=== PATIENT | female | born 1995 | race Caucasian/White ===

== ENCOUNTER 2025-02-16 14:59 | Outpatient (REF) | payer OTHER, SELFPAY ==
--- OUTSIDE RECORDS SUMMARY | 2025-02-16 15:03 | XMS_ITS | Encounter Summary ---
Author Organization [facility] Address [address] [place] [address] Care Team Providers Care Ginger Farmer Name Role Phone Unavailable Primary Care Provider Unavailabl e Encounter Details Date Type Department Care Team (Late st Contact Info) Description 02/16/2025 Bamboo flowsheet [facility] [address] [place] [address] Bean Ortiz, DO [address] [place], [facility] Social History Tobacco Use Types Packs/Day Years Used Date Smoking Tobacco: Never Smokeless Tobacco: Never Alcohol Use Standard Drinks/Week Comments Never 0 (1 standard drink = 0.6 oz pur e alcohol) Comments No Sex and Gender Information Value Date Recorded Sex Assigned at Not on file Legal Sex Female 11:47 PM EDT Gender Identity Not on file Sexual Orientation Not on file documented as of this encounter Plan of Treatment Upcoming Encounters Date Type Department Care Team (Late st Contact Info) Description 08/07/2025 9:10 AM EST Office Visit [facility] [address] [place] [address] Teresa Gao, CRIMINAL JUSTICE SOCIAL WORKER-SHINGLE SAWYER [address] [place] [address] 02/22/2026 11:00 AM EDT Office Visit [facility] [address] [place] [address] Bean Ortiz, DO [address] [place], [facility] documented as of this encounter Visit Diagnoses Not on filedocumented in this encounter
--- OUTSIDE RECORDS SUMMARY | 2025-02-16 15:03 | XMS_ITS | Encounter Summary ---
Author Organization [facility] Address [address] [place] [address] Care Team Providers Care Research And Development Tester Name Role Phone Unavailable Primary Care Provider Unavailabl e Encounter Details Date Type Department Care Team (Latest Contact Info) Description 02/16/2025 Travel Social History Tobacco Use Types Packs/Day Years [...] Office Visit [facility] [address] [facility] [address] [place] [phone] Teresa Gao, HOUSING MANAGER-REAL ESTATE DEVELOPMENT MANAGER [address] [facility] [address] [place] [address] 02/22/2026 11:00 AM EDT Office Visit [facility] [address] [place] [id number] Bean Ortiz DO [address] [place] [address] documented as of this encounter Visit Diagnoses Not on filedocumented in this encounter
--- OUTSIDE RECORDS SUMMARY | 2025-02-16 15:03 | XMS_ITS | Clinical Summary ---
Author Organization [facility] Address [address] [facility] [place] [address] Care Team Providers Care Vegetable Ii Farmworker Name Role Phone Unavailable Primary Care Provider Unavailabl e Allergies No known active allergies Medications No known medications Active Problems No known active problems Encounters Date Type Department Care Team Description 02/16/2025 10:00 AM EDT Office Visit [facility] [address] [place] [address] Bean Ortiz, Well woman exam with routine gynecological exam; Hormone imbalance 02/16/2025 Telephone [facility] OB [facility] [place] [place] [address] Camilla Bonilla LPN 02/16/2025 Bamboo flowsheet [facility] [place] [address] [place] [address] Bean Ortiz DO 02/16/2025 Travel from Last 3 Months Family History Medical History Relation Name Comments Heart disease Maternal Grandfather Heart disease Paternal Grandfather Cancer Paternal Grandmother Melanoma Neg Hx Relation Name Status Comments Daughter 1 Maternal Grandfather Paternal Grandfather Paternal Grandmother Sister 1 Son 1 Social History Tobacco Use Types Packs/Day Years Used Date Smoking Tobacco: Never Smokeless Tobacco: Never Tobacco Cessation:Counseling Given: Not Answered Alcohol Use Standard Drinks/Week Comments Never 0 (1 standard drink = 0.6 oz pur e alcohol) Comments No Sex and Gender Information Value Date Recorded Sex Assigned at Not on file Legal Sex Female 11:47 PM EDT Gender Identity Not on file Sexual Orientation Not on file Last Filed Vital Signs Vital Sign Reading Time Taken Comments Blood Pressure 118/72 02/16/2025 10:17 AM EDT Pulse - - Temperature - - Respiratory Rate - - Oxygen Saturation - - Inhaled Oxygen Concentration - - Weight 73.9 kg (163 lb) 02/16/2025 10:17 AM EDT Height 167.6 cm (5' 6 ) 12/23/2022 12:00 PM EDT Body Mass Index 26.31 12/23/2022 12:00 PM EDT Plan of Treatment Upcoming Encounters Date Type Department Care Team (Late st Contact Info) Description 08/07/2025 9:10 AM EST Office Visit [facility] [address] [place] [address] Teresa Gao, KETTLE CLEANER-HARDWOOD FLOOR INSTALLER [address] [place] [address] 02/22/2026 11:00 AM EDT Office Visit [facility] [address] [facility] [place] [place] [phone] Bean Ortiz DO [address] [place], [place] [id number] Insurance [facility]
--- OUTSIDE RECORDS SUMMARY | 2025-02-16 15:03 | XMS_ITS | Encounter Summary ---
Author Organization [facility] Address [address] [place] [address] Care Team Providers Care Economics Teacher Name Role Phone Unavailable Primary Care Provider Unavailabl e Encounter Details Date Type Department Care Team (Late st Contact Info) Description 02/16/2025 Telephone [facility] [address] [place] [address] [place] [address] Camilla Bonilla LPN Social History Tobacco Use Types Packs/Day Years [...] on file documented as of this encounter Miscellaneous Notes * Telephone Encounter - Camilla Bonilla LPN - 02/16/2025 10:41 AM EDT Check in [facility] for patient weight back in 2021--ss Was able to finally view weight in chart and patient notified--ss documented in this encounter Plan of Treatment Upcoming Encounters Date Type Department Care Team (Late st Contact Info) Description 08/07/2025 9:10 AM EST Office Visit [facility] [address] [place] [phone] Teresa Gao APRN-COMMUNICATIONS DEPARTMENT CHAIR [address] [place] [address] 02/22/2026 11:00 AM EDT Office Visit [facility] [address] [facility] [place] [address] Bean Ortiz, [address] [place] [address] documented as of this encounter Visit Diagnoses Not on filedocumented in this encounter
[2025-02-21 14:08] LABS: Age Gdln ACOG Testing Note (.); HPV Aptima Negative (Negative); IGP, Aptima HPV, rfx 16/18,45 Note (.)
== END 2025-02-16 15:00 | disposition home or self-care (01) ==
LOC: LAB 14:59
PROVIDERS: Visit Provider Obstetrics & Gynecology
DX: Z01.419 Encounter for gynecological examination (general) (routine) without abnormal findings (principal)
CPT/HCPCS: 87624; 88175

== ENCOUNTER 2025-03-03 09:35 | Outpatient (OUT) | payer OTHER, SELFPAY ==
[2025-03-03 10:53] LABS: Basophils Absolute Auto 0.1 10^3/uL (0.0-0.1); Eosinophils Percent Auto 0.4 % (0.9-7.0); Hematocrit 30.9 % (36.0-48.0); Hemoglobin 9.5 g/dL (12.0-16.0); Immature Granulocytes Abs Auto 0.02 10^3/uL (0.00-0.03); Immature Granulocytes Pct Auto 0.4 % (0.0-0.5); Lymphocytes Absolute Auto 1.6 10^3/uL (1.2-3.8); Lymphocytes Percent Auto 31.2 % (20.5-60.0); Mean Corpuscular HGB Conc 30.7 g/dL (29.9-35.2); Mean Corpuscular Hemoglobin 23.7 pg (26.7-34.0); Mean Corpuscular Volume 77.1 fL (81.0-99.0); Mean Platelet Volume 9.8 fL (9.5-13.5); Monocytes Absolute Auto 0.4 10^3/uL (0.3-0.8); Monocytes Percent Auto 6.7 % (1.7-12.0); Neutrophils Absolute Auto 3.1 10^3/uL (1.4-6.5); Neutrophils Percent Auto 60.3 % (43.0-75.0); Platelet Count 314 10^3/uL (150-450); Red Blood Count 4.01 10^6/uL (4.20-5.40); White Blood Count 5.2 10^3/uL (4.0-11.0)
[2025-03-03 11:50] LABS: Free T4 0.99 ng/dL (0.76-1.46)
[2025-03-03 11:56] LABS: Thyroid Stimulating Hormone 1.539 uIU/mL (0.358-3.740)
[2025-03-03 12:02] LABS: HCG Quantitative <1 mIU/mL
[2025-03-03 13:02] LABS: Estimated Average Glucose 91 mg/dL; Glycohemoglobin A1C 4.8 % (4.5-6.2)
[2025-03-04 04:07] LABS: FSH 5.1 mIU/mL (.); Progesterone 0.1 ng/mL (.)
[2025-03-09 15:08] LABS: DHEA, Serum 363 ng/dL (31-701)
== END 2025-03-03 09:36 | disposition home or self-care (01) ==
LOC: LAB 09:39
PROVIDERS: PCP Family Medicine; Visit Provider Obstetrics & Gynecology
DX: E34.9 Endocrine disorder, unspecified (principal)
CPT/HCPCS: 36415; 82626; 82627; 82670; 83001; 83002; 83036; 84144; 84439; 84443; 84702; 85025